=== PATIENT | female | born 1940 | race Caucasian/White ===

== ENCOUNTER 2017-10-31 10:12 | Outpatient (CLI) | payer MEDICARE, OTHER | END 2017-10-31 10:13 | disposition home or self-care (01) | LOC: BICMAMMO 10:12 | PROVIDERS: ATTEND Family Medicine | DX: Z12.31 Encounter for screening mammogram for malignant neoplasm of breast (principal) | CPT/HCPCS: 77063; 77067 ==

== ENCOUNTER 2018-06-08 13:56 | Outpatient (CLI) | payer MEDICARE ==
[~2018-06-08 13:56] MED LIST: Gadobenate Dimeglumine 529 MG/1 ML (20ML VIAL) ONE
--- NOTE | 2018-06-08 15:40 | MRI ---
MRI OF THE BRAIN WITHOUT AND WITH CONTRAST: COMPARISON: None. HISTORY: Unsteady gait and polyneuropathy. Left eye tremor. TECHNIQUE: Multiplanar, multisequence MR images were obtained of the brain without and with IV contrast. FINDINGS: There are a few scattered foci of high FLAIR signal in the subcortical and periventricular white elisa er, likely secondary to small-vessel ischemic disease. No restricted diffusion is seen to suggest an acute infarction. No abnormal enhancement is seen. There is no evidence of hydrocephalus, intracranial hemorrhage, or extraaxial fluid collection. The expected flow voids are present. The corpus callosum, pituitary, and craniocervical junction are unr emarkable. The calvarium and overlying soft tissues are unremarkable. The visualized paranasal sinuses and mast oid air cells are well aerated. IMPRESSION: Small-vessel ischemic disease without acute intracranial abnormality. POS: [facility]
== END 2018-06-08 13:57 | disposition home or self-care (01) ==
LOC: SCSMRI 13:56
PROVIDERS: ATTEND Psychiatry & Neurology Neurology
DX: G63 Polyneuropathy in diseases classified elsewhere (principal); I67.82 Cerebral ischemia
CPT/HCPCS: 70553; 82565; A9579

== ENCOUNTER 2019-01-10 22:33 | Emergency (ER) | payer MEDICARE | END 2019-01-10 23:33 | disposition home or self-care (01) | LOC: ERS 22:33 | DX: T63.2X1A Toxic effect of venom of scorpion, accidental (unintentional), initial encounter (principal); Z87.01 Personal history of pneumonia (recurrent) | CPT/HCPCS: 99283 ==

== ENCOUNTER 2020-03-19 22:41 | Emergency (ER) | payer MEDICARE | END 2020-03-20 00:05 | disposition left against medical advice (07) | LOC: ERS 22:41 | DX: Z53.21 Procedure and treatment not carried out due to patient leaving prior to being seen by health care provider (principal) ==

== ENCOUNTER 2020-09-16 06:38 | Outpatient (CLI) | payer MEDICARE ==
[2020-09-16 15:43] LABS: Bilirubin Neg (Negative); Blood, Urine Negative (Negative); Clarity Clear (Clear); Glucose, Urine (Dipstick) Normal (Negative); Ketone, Urine Negative (Negative); Leukocyte Negative (Negative); Nitrite Negative (Negative); Protein, Urine (Dipstick) Negative (Neg-Trace); Urobilinogen Normal mg/dL (Less than 2)
[2020-09-16 15:50] LABS: Anion Gap 14 mmol/L (10-20); BUN (Urea Nitrogen) 23 mg/dL (9.8-20.1); Calc. Creatinine Clearance 0 mL/min (70-130); Calcium 10.1 mg/dL (7.8-10.44); Carbon Dioxide 27 mmol/L (23-31); Chloride 105 mmol/L (98-107); Glucose 94 mg/dL (83-110); Potassium 4.6 mmol/L (3.5-5.1); Sodium 141 mmol/L (136-145)
[2020-09-16 15:55] LABS: #Basophils 0.1 10x3/uL (0.0-0.2); #Eosinphils 0.1 10x3/uL (0.0-0.5); #Monocytes 0.6 10x3/uL (0.0-1.1); #Neutrophils 4.7 10x3/uL (1.5-8.4); %Basophils 0.8 % (0.0-2.0); %Eosinophils 1.1 % (0.0-6.0); %Monocytes 7.7 % (0.0-10.0); Hemoglobin 13.6 g/dL (12.0-16.0); Mean Corpuscular HGB CONC 31.9 G/DL (32.0-36.0); Mean Corpuscular Hemoglobin 31.1 PG (27.0-33.0); Mean Corpuscular Volume 97.5 fl (80.0-100.0); Mean Platelet Volume 10.7 fl (7.4-10.4); Platelet Count 230 10x3/uL (130-400); RBC Distribution Width 13.4 % (11.5-14.5); Red Blood Cell (RBC) Count 4.37 10x6/uL (3.90-5.20); White Blood Cell (WBC) Count 7.4 10x3/uL (4.5-11.0)
[2020-09-16 16:02] LABS: RBC/HPF None Seen HPF (0-3); Squamous Epithelial 0-3 HPF (0-3); WBC/HPF None Seen HPF (0-3)
[2020-09-16 16:03] LABS: Bacteria/HPF None Seen HPF (None Seen)
[2020-09-17 07:48] LABS: SARS-CoV-2 MS2 Positive; SARS-CoV-2 N Gene Negative; SARS-CoV-2 S Gene Negative; SARS-CoV-2 by NAA Not Detected (NotDetected); SARS-CoV-2 orf1ab Negative
== END 2020-09-16 06:39 | disposition home or self-care (01) ==
LOC: LABBT 06:38
PROVIDERS: ATTEND Orthopaedic Surgery Hand Surgery
DX: Z01.818 Encounter for other preprocedural examination (principal); Z01.812 Encounter for preprocedural laboratory examination; M18.12 Unilateral primary osteoarthritis of first carpometacarpal joint, left hand; G56.01 Carpal tunnel syndrome, right upper limb; Z20.828 Contact with and (suspected) exposure to other viral communicable diseases
CPT/HCPCS: 80048; 81001; 85025; 93005; U0003; 87635; 93010

== ENCOUNTER 2020-09-19 05:59 | Day surgery (SDC) | payer MEDICARE ==
[2020-09-18 12:13] VITALS: BMI 21.2
[2020-09-19] MEDS ORDERED: Midazolam HCl 2 mg/2 ml Vial ONE (06:20)
[2020-09-19] MEDS ORDERED: Fentanyl 100 MCG/2 ML VIAL ONE ×3 (06:20→10:36)
[2020-09-19] MEDS ORDERED: Bupivacaine PF 0.5% 30 ML VIAL ONE (06:29)
[2020-09-19] MEDS ORDERED: Betamet Acet/Betamet Na Ph 30 MG/5 ML VIAL ONE (06:29)
[2020-09-19] MEDS ORDERED: Bacitracin Zinc Ointment 30 gm TUBE ONE (06:30)
[2020-09-19] MEDS ORDERED: Sodium Chloride 0.9% 10 ML ONE (06:30)
--- NOTE | 2020-09-19 10:05 | RAD ---
XR Hand Lt 2 View History: Arthroplasty Comparison: None. Findings: 2 images from the operating room were performed. Percutaneous pins are seen through the mariano mb. Impression: Fluoroscopy for procedure purposes.
[2020-09-19] MEDS ORDERED: Dexamethasone 20 MG/5 ML VIAL ONE (10:20)
[2020-09-19] MEDS ORDERED: PROPOFOL 200 MG/20 ML VIAL ONE (10:20)
[2020-09-19] MEDS ORDERED: Bupivacaine HCl 0.5%/Epinephrine 1:200,000/PF 30 ml Vial ONE (10:20)
[2020-09-19] MEDS ORDERED: Lidocaine 1% PF 5 ML VIAL ONE (10:20)
[2020-09-19] MEDS ORDERED: Ketorolac Tromethamine 30 MG/ML VIAL ONE (10:20)
[2020-09-19] MEDS ORDERED: PHENYLEPHRINE-NS 100 MCG/ML 10 ML SYRINGE ONE (10:20)
[2020-09-19] MEDS ORDERED: Ondansetron PF 4 MG/2 ML Vial ONE (10:20)
--- NOTE | 2020-09-21 15:32 | OP ---
DATE OF PROCEDURE: 09/19/2020 PREOPERATIVE DIAGNOSES: 1. Left carpal tunnel syndrome. 2. Left thumb carpometacarpal osteoarthritis. FINDINGS: 1. Greater than 80% loss of chondral surface at the left thumb CMC from both sides with large osteophytes on the base of the thumb. 2. Tight transcarpal ligament over 1 cm area, causing early stippling without hourglass formation of the median nerve within the carpal canal. PROCEDURES PERFORMED: 1. Left carpal tunnel release. 2. Left thumb ligament replacement and tendon positioning with flexor carpi radialis tendon transfer and complete trapeziectomy. SPECIMEN: Trapezium, but not sent to Pathology. ESTIMATED BLOOD LOSS: 10 mL. TOURNIQUET TIME: 91 minutes. ANESTHESIA: Combination of general LMA technique and one shot 24-hour block, axillary level. DESCRIPTION OF PROCEDURE: After successful general endotracheal anesthesia, the limb was prepped and draped. Patient then had a bolstered 2.0 cm mini-carpal tunnel incision outlined beginning at 5 mm distal palmar flexion crease. Then, a J-shaped incision centered over the CMC joint thumb. After exsanguinating the limb and full prep and drape with appropriate time-out, the patient then had the carpal tunnel incision entered into skin and subcutaneous tissue. We identified the palmaris longus insertion on the fascia. We then entered this slightly in the palmaris insertion. We carried this through the layers to visualize underlying structures and used a combination of [place] blade, tenotomy scissors to release it from here distally. All nerve branches were intact. Then, from there proximally, we did release using same instruments and techniques. The patient then had the carpal tunnel release completed. We then dripped 2 mL of Celestone over the median nerve and then closed the incision primarily with interrupted 4-0 nylon mattress pattern. We then entered the hockey-stick incision. The patient had the dissection carried down through subcutaneous level where we entered the interval between the median nerve and the radial nerve branch, which we preserved. We then released the interossei and the thenar muscles off the bone where as fascia located simultaneously, lifted up the joint capsule. Joint capsule was secured and held for later closure with a tagged 2-0 Vicryl. We then slowly dissected the radial aspect with combination of [place] blade, tenotomy scissors, and then the ulnar aspect of the trapezium was dissected until we identified the flexor carpi radialis tendon. We protected the tendon while we used sharp and blunt dissection to remove all soft tissue off the trapezium. Trapezium identified with a K-wire inside using C-arm and then the position was excellent, so we then put a corkscrew attachment from [employer] in the trapezium. This allowed us to elevate it more succinctly, and we were able to do so protecting the flexor carpi radialis tendon completely. We then identified lateral edge 1.5 cm from the thumb base, removed all osteophytes, rotated the thumb until the nail was parallel to the palm, and then drilled a K-wire obliquely in the junction of the chondral surface and the metaphyseal bone. We drilled this first with a 2.7 drill and 3.0 drill and progressively increased it with multiple gouges. Once we reached sufficient size to match the patient's flexor carpi radialis in this female, we then made 2 incisions technique to harvest flexor carpi radialis tendon, brought it into the wrist. We removed all excess muscle, and even had to thin the tendon by approximately 25%. We then passed easily through the tunnel, trapezium. We then secured it in appropriate orientation in frontal sagittal plane to the index finger to metacarpal base. We filled the defect by placing a 3-0 Prolene in the capsule and then making anchovy weave. Before we made anchovy weave over a Arash needle, we secured the base of the metacarpal of the thumb to the base metacarpal of the index finger by tied under tension the flexor carpi radialis tendon with multiple, times 6, sutures. We then tied upon itself deep in the area and before completing the anchovy weave. Tourniquet was deflated, obtained hemostasis. We then released the tourniquet and obtained hemostasis. We closed the capsule over the anchovy weave of the remnant of the flexor carpi radialis tendon and had confirmed excellent height of the metacarpal relative to the base of the 2nd metacarpal. We then cut the K-wires that we used 1st and 2nd metacarpal and we were able to bend them outside the skin by 3-4 mm with 3 mm long, 90 degrees angle. We then visualized the extensor pollicis brevis and the superficial radial nerve branch were intact, we closed the area with a running 4-0 Monocryl until we were had enough tension that we could apply Steri-Strips. The carpal tunnel had been closed with 4-0 nylon with interrupted pattern. The patient then had a bulky dressing applied with a thumb spica splint and left the operating room without evidence of anesthetic or operative complication. Job ID: [id number]
== END 2020-09-19 12:40 | disposition home or self-care (01) ==
LOC: SDC 05:59
PROVIDERS: ATTEND Orthopaedic Surgery Hand Surgery
PROC: 0LX60ZZ Transfer Left Lower Arm and Wrist Tendon, Open Approach (ICD-10-PCS; principal; 2020-09-19)
PROC: 0RQT0ZZ Repair Left Carpometacarpal Joint, Open Approach (ICD-10-PCS; 2020-09-19)
PROC: 01N50ZZ Release Median Nerve, Open Approach (ICD-10-PCS; 2020-09-19)
DX: M18.12 Unilateral primary osteoarthritis of first carpometacarpal joint, left hand (principal); G56.02 Carpal tunnel syndrome, left upper limb; G56.22 Lesion of ulnar nerve, left upper limb; I10 Essential (primary) hypertension; E78.00 Pure hypercholesterolemia, unspecified; Z79.82 Long term (current) use of aspirin; Z79.899 Other long term (current) drug therapy; Z88.5 Allergy status to narcotic agent; Z20.828 Contact with and (suspected) exposure to other viral communicable diseases
CPT/HCPCS: 25310; 25447; 64721; 73120; 76000; 80048; 81001; 85025; 93005; C1713; U0003; 87635; 93010; J0690; J0702; J1100; J1885; J2250; J2405; J2704; J3010; J3490; S0020

== ENCOUNTER 2022-05-29 03:42 | Emergency (ER) | payer MEDICARE | END 2022-05-29 04:33 | disposition home or self-care (01) | LOC: ERS 03:42 | DX: H72.91 Unspecified perforation of tympanic membrane, right ear (principal) | CPT/HCPCS: 99282 ==

== ENCOUNTER 2022-06-04 19:51 | Emergency (ER) | payer MEDICARE ==
[2022-06-04] MEDS ORDERED: Orphenadrine Citrate 60 MG/2 ML VIAL ONE (20:50)
== END 2022-06-04 21:40 | disposition home or self-care (01) ==
LOC: ERS 19:51
DX: S46.911A Strain of unspecified muscle, fascia and tendon at shoulder and upper arm level, right arm, initial encounter (principal)
CPT/HCPCS: 96372; J2360

== ENCOUNTER 2023-12-05 14:04 | Outpatient (CLI) | payer MEDICARE | END 2023-12-05 14:05 | disposition home or self-care (01) | LOC: BICMAMMO 14:04 | PROVIDERS: ATTEND Family Medicine | DX: M85.89 Other specified disorders of bone density and structure, multiple sites (principal); M81.0 Age-related osteoporosis without current pathological fracture | CPT/HCPCS: 77080 ==

== ENCOUNTER 2025-04-17 21:43 | Inpatient (IN) | payer MEDICARE ==
[2025-04-17] MEDS ORDERED: HYDROcodone/Acetaminophen 5/325 mg Tablet ONE ×2 (22:09→22:19)
[2025-04-18] MEDS ORDERED: hydrALAZINE 20 MG/ML VIAL ONE (00:01)
[2025-04-18 00:26] LABS: #Basophils 0.06 10x3/uL (0.0-0.2); #Eosinophils 0.07 10x3/uL (0.0-0.7); #Monocytes 0.45 10x3/uL (0.11-0.59); #Neutrophils 6.73 10x3/uL (1.40-6.50); %Basophils 0.7 % (0.0-1.0); %Eosinophils 0.8 % (0.0-10.0); %Lymphocytes 16.1 % (21.0-51.0); %Monocytes 5.1 % (0.0-10.0); %Neutrophils 77.0 % (42.0-75.0); Hematocrit 33.9 % (36.0-47.0); Hemoglobin 10.6 g/dL (12.0-16.0); Mean Corpuscular Hemoglobin 31.0 pg (27.0-31.0); Mean Corpuscular Volume 99.1 fL (78.0-98.0); Platelet Count 210 10x3/uL (130-400); Red Blood Cell (RBC) Count 3.42 mill/uL (4.20-5.40); White Blood Cell (WBC) Count 8.75 10x3/uL (4.8-10.8)
[2025-04-18 00:36] LABS: INR-International Normal Ratio 1.1; PTT 28.5 sec (22.9-36.1); Prothrombin Time 14.0 sec (12.0-14.7)
[2025-04-18 00:51] LABS: ALT (SGPT) 19 U/L (Less than 34); AST (SGOT) 28 U/L (11-34); Albumin 4.0 g/dL (3.1-4.5); Alkaline Phosphatase 184 U/L (40-110); Anion Gap 14 mmol/L (10-20); BUN (Urea Nitrogen) 23 mg/dL (9.8-20.1); Bilirubin, Total 0.2 mg/dL (0.3-1.2); Calc. Creatinine Clearance 0 mL/min (70-130); Calcium 10.1 mg/dL (7.8-10.44); Carbon Dioxide 25 mmol/L (23-31); Chloride 105 mmol/L (98-107); Globulin 3.2 g/dL (2.4-3.5); Glucose 114 mg/dL (83-110); Potassium 4.4 mmol/L (3.5-5.1); Sodium 140 mmol/L (136-145)
[2025-04-18 01:15] VITALS: BMI 20.3
[2025-04-18] MEDS ORDERED: Acetaminophen 325 MG TAB PO PRN (01:45)
[2025-04-18] MEDS: Ondansetron PF 4 MG/2 ML Vial IVP PRN (03:04)
[2025-04-18 08:25] LABS: #Basophils 0.05 10x3/uL (0.0-0.2); #Eosinophils Less than 0.03 10x3/uL (0.0-0.7); #Monocytes 0.74 10x3/uL (0.11-0.59); #Neutrophils 8.31 10x3/uL (1.40-6.50); %Basophils 0.5 % (0.0-1.0); %Eosinophils 0.0 % (0.0-10.0); %Lymphocytes 9.7 % (21.0-51.0); %Monocytes 7.3 % (0.0-10.0); %Neutrophils 81.8 % (42.0-75.0); Hematocrit 32.3 % (36.0-47.0); Hemoglobin 10.3 g/dL (12.0-16.0); Mean Corpuscular Hemoglobin 31.1 pg (27.0-31.0); Mean Corpuscular Volume 97.6 fL (78.0-98.0); Platelet Count 206 10x3/uL (130-400); Red Blood Cell (RBC) Count 3.31 mill/uL (4.20-5.40); White Blood Cell (WBC) Count 10.15 10x3/uL (4.8-10.8)
[2025-04-18 08:46] LABS: Anion Gap 12 mmol/L (10-20); BUN (Urea Nitrogen) 19 mg/dL (9.8-20.1); Calc. Creatinine Clearance 42 mL/min (70-130); Calcium 9.6 mg/dL (7.8-10.44); Carbon Dioxide 27 mmol/L (23-31); Chloride 104 mmol/L (98-107); Glucose 142 mg/dL (83-110); Magnesium 1.9 mg/dL (1.6-2.6); Potassium 4.6 mmol/L (3.5-5.1); Sodium 138 mmol/L (136-145)
[2025-04-18] MEDS ORDERED: CHOLECALCIFEROL 1250 MCG PO SCH (09:00)
[2025-04-18] MEDS: DULoxetine 30 MG CAP PO SCH (09:18)
[2025-04-18] MEDS: Budesonide DR 3 MG CAP PO SCH (09:19)
[2025-04-18] MEDS: Memantine 5 MG TAB PO SCH (09:19)
[2025-04-18] MEDS: Calcium Carbonate 600 MG + Vit D TAB PO SCH (09:19)
[2025-04-18] MEDS: Multivitamin w/Zinc Stress 1 TAB PO SCH (09:19)
[2025-04-18] MEDS: CO Q-10 CAPSULE 100 MG PO SCH (09:19)
[2025-04-18] MEDS: Floranex 1 GM Packet PO SCH (10:29)
[2025-04-18] MEDS ORDERED: Ropivacaine 0.5% HCl/PF (150 MG/30 ML VIAL) ONE (11:13)
[2025-04-18] MEDS ORDERED: fentaNYL PF 100 MCG/2 ML SYRINGE ONE (11:41)
[2025-04-18] MEDS ORDERED: PROPOFOL 20 ML ONE (11:42)
[2025-04-18] MEDS ORDERED: CEFAZOLIN 1 GM VIAL ONE (12:48)
[2025-04-18] MEDS ORDERED: PHENYLEPHRINE-NS 100 MCG/ML 10 ML SYRINGE ONE (13:11)
[2025-04-18] MEDS ORDERED: Ondansetron PF 4 MG/2 ML Vial ONE (13:12)
[2025-04-18] MEDS ORDERED: SUGAMMADEX SODIUM 200 MG/2 ML VIAL ONE (14:07)
[2025-04-18] MEDS: METHYLFOLATE PO SCH (17:06)
[2025-04-18] MEDS: CHONDROITIN PO SCH (17:06)
[2025-04-18] MEDS: CHOLECALCIFEROL PO SCH (17:06)
[2025-04-18] MEDS: GLUCOSAMINE PO SCH (17:06)
[2025-04-18] MEDS: VITAMIN A PO SCH (17:06)
[2025-04-18] MEDS: PREVAGEN PO SCH (17:06)
[2025-04-18] MEDS: Ketorolac Tromethamine 30 MG (1 mL) VIAL IVP PRN (22:16)
[2025-04-19 05:47] LABS: #Basophils Less than 0.03 10x3/uL (0.0-0.2); #Eosinophils Less than 0.03 10x3/uL (0.0-0.7); #Monocytes 1.45 10x3/uL (0.11-0.59); #Neutrophils 8.47 10x3/uL (1.40-6.50); %Basophils 0.1 % (0.0-1.0); %Eosinophils 0.0 % (0.0-10.0); %Lymphocytes 13.7 % (21.0-51.0); %Monocytes 12.6 % (0.0-10.0); %Neutrophils 73.3 % (42.0-75.0); Hematocrit 27.2 % (36.0-47.0); Hemoglobin 8.8 g/dL (12.0-16.0); Mean Corpuscular Hemoglobin 31.3 pg (27.0-31.0); Mean Corpuscular Volume 96.8 fL (78.0-98.0); Platelet Count 200 10x3/uL (130-400); Red Blood Cell (RBC) Count 2.81 mill/uL (4.20-5.40); White Blood Cell (WBC) Count 11.55 10x3/uL (4.8-10.8)
[2025-04-19 05:57] LABS: Anion Gap 12 mmol/L (10-20); BUN (Urea Nitrogen) 18 mg/dL (9.8-20.1); Calc. Creatinine Clearance 40 mL/min (70-130); Calcium 9.1 mg/dL (7.8-10.44); Carbon Dioxide 20 mmol/L (23-31); Chloride 106 mmol/L (98-107); Glucose 118 mg/dL (83-110); Potassium 5.0 mmol/L (3.5-5.1); Sodium 133 mmol/L (136-145)
[2025-04-19] MEDS: Methocarbamol 500 MG TAB PO PRN (14:15)
[2025-04-20] MEDS: Acetaminophen 325 MG TAB PO PRN (06:02)
[2025-04-20 06:20] LABS: #Basophils Less than 0.03 10x3/uL (0.0-0.2); #Eosinophils Less than 0.03 10x3/uL (0.0-0.7); #Monocytes 0.89 10x3/uL (0.11-0.59); #Neutrophils 9.28 10x3/uL (1.40-6.50); %Basophils 0.2 % (0.0-1.0); %Eosinophils 0.1 % (0.0-10.0); %Lymphocytes 9.1 % (21.0-51.0); %Monocytes 7.9 % (0.0-10.0); %Neutrophils 82.3 % (42.0-75.0); Hematocrit 23.4 % (36.0-47.0); Hemoglobin 7.6 g/dL (12.0-16.0); Mean Corpuscular Hemoglobin 31.8 pg (27.0-31.0); Mean Corpuscular Volume 97.9 fL (78.0-98.0); Platelet Count 180 10x3/uL (130-400); Red Blood Cell (RBC) Count 2.39 mill/uL (4.20-5.40); White Blood Cell (WBC) Count 11.28 10x3/uL (4.8-10.8)
[2025-04-20 07:05] LABS: Anion Gap 12 mmol/L (10-20); BUN (Urea Nitrogen) 34 mg/dL (9.8-20.1); Calc. Creatinine Clearance 31 mL/min (70-130); Calcium 8.8 mg/dL (7.8-10.44); Carbon Dioxide 20 mmol/L (23-31); Chloride 105 mmol/L (98-107); Glucose 130 mg/dL (83-110); Potassium 4.6 mmol/L (3.5-5.1); Sodium 132 mmol/L (136-145)
[2025-04-20 07:18] LABS: ALT (SGPT) Less than 7 U/L (Less than 34); AST (SGOT) 25 U/L (11-34); Albumin 2.8 g/dL (3.1-4.5); Alkaline Phosphatase 149 U/L (40-110); Anion Gap 11 mmol/L (10-20); BUN (Urea Nitrogen) 33 mg/dL (9.8-20.1); Bilirubin, Total 0.3 mg/dL (0.3-1.2); Calc. Creatinine Clearance 30 mL/min (70-130); Calcium 9.0 mg/dL (7.8-10.44); Carbon Dioxide 22 mmol/L (23-31); Chloride 105 mmol/L (98-107); Globulin 2.8 g/dL (2.4-3.5); Glucose 128 mg/dL (83-110); Magnesium 2.3 mg/dL (1.6-2.6); Potassium 4.6 mmol/L (3.5-5.1); Sodium 133 mmol/L (136-145)
[2025-04-20] MEDS ORDERED: Vancomycin 1 GM in Sodium Chloride 0.9% 250 ML 250 ML IVPB SCH (09:00)
[2025-04-20] MEDS: Vancomycin 1 GM in Premix 1 BAG IVPB SCH (09:02)
[2025-04-20] MEDS: OLANZapine 10 MG VIAL IM SCH (09:04)
[2025-04-20 13:38] LABS: CAUTI Indications for Culture Alt mental st,lethar; Glucose, Urine (Dipstick) Normal (Negative); Leukocyte 500 Leu/uL (Negative); Protein, Urine (Dipstick) Negative (Neg-Trace); RBC/HPF 0-3 HPF (0-3); Specific Gravity, Urine 1.020 (1.002-1.036); WBC/HPF Greater than 50 HPF (0-3)
[2025-04-20 13:55] LABS: Bacteria/HPF 1+ HPF (None Seen)
[2025-04-20 13:57] LABS: Urine Culture Reflex Yes Yes
[2025-04-20] MEDS ORDERED: Vancomycin Dose by Levels Sliding Scale (Wt <71) FS SCH (14:00)
[2025-04-20] MEDS ORDERED: Vancomycin HCl 500 MG in NaCl 0.9% 100 ML IV SCH (21:00)
[2025-04-21 05:12] LABS: #Basophils 0.03 10x3/uL (0.0-0.2); #Eosinophils 0.07 10x3/uL (0.0-0.7); #Monocytes 0.97 10x3/uL (0.11-0.59); #Neutrophils 7.68 10x3/uL (1.40-6.50); %Basophils 0.3 % (0.0-1.0); %Eosinophils 0.7 % (0.0-10.0); %Lymphocytes 14.7 % (21.0-51.0); %Monocytes 9.4 % (0.0-10.0); %Neutrophils 74.6 % (42.0-75.0); Hematocrit 21.5 % (36.0-47.0); Hemoglobin 6.9 g/dL (12.0-16.0); Mean Corpuscular Hemoglobin 30.5 pg (27.0-31.0); Mean Corpuscular Volume 95.1 fL (78.0-98.0); Platelet Count 179 10x3/uL (130-400); Red Blood Cell (RBC) Count 2.26 mill/uL (4.20-5.40); White Blood Cell (WBC) Count 10.29 10x3/uL (4.8-10.8)
[2025-04-21 05:25] LABS: Anion Gap 10 mmol/L (10-20); BUN (Urea Nitrogen) 29 mg/dL (9.8-20.1); Calc. Creatinine Clearance 36 mL/min (70-130); Calcium 8.7 mg/dL (7.8-10.44); Carbon Dioxide 19 mmol/L (23-31); Chloride 110 mmol/L (98-107); Glucose 117 mg/dL (83-110); Potassium 4.4 mmol/L (3.5-5.1); Sodium 135 mmol/L (136-145)
[2025-04-21 10:32] LABS: Vancomycin, Trough 6.0 ug/mL
[2025-04-21] MEDS: Lidocaine 4% Topical Sol 50 ML BOT TOP SCH (13:40)
[2025-04-21] MEDS: Furosemide 20 MG (2 mL) VIAL SLOW IVP SCH (13:41)
[2025-04-21] MEDS: Vancomycin 1 GM in Premix 1 BAG IVPB SCH (13:41)
[2025-04-21] MEDS ORDERED: Vancomycin 1 GM in Premix 1 BAG IVPB SCH (23:00)
[2025-04-22 00:18] LABS: Hematocrit 27.2 % (36.0-47.0); Hemoglobin 9.1 g/dL (12.0-16.0)
[2025-04-22 06:14] LABS: #Basophils 0.03 10x3/uL (0.0-0.2); #Eosinophils 0.31 10x3/uL (0.0-0.7); #Monocytes 0.75 10x3/uL (0.11-0.59); #Neutrophils 5.01 10x3/uL (1.40-6.50); %Basophils 0.4 % (0.0-1.0); %Eosinophils 4.1 % (0.0-10.0); %Lymphocytes 18.9 % (21.0-51.0); %Monocytes 9.9 % (0.0-10.0); %Neutrophils 66.0 % (42.0-75.0); Hematocrit 27.8 % (36.0-47.0); Hemoglobin 9.2 g/dL (12.0-16.0); Mean Corpuscular Hemoglobin 29.1 pg (27.0-31.0); Mean Corpuscular Volume 88.0 fL (78.0-98.0); Platelet Count 183 10x3/uL (130-400); Red Blood Cell (RBC) Count 3.16 mill/uL (4.20-5.40); White Blood Cell (WBC) Count 7.58 10x3/uL (4.8-10.8)
[2025-04-22 06:31] LABS: Anion Gap 12 mmol/L (10-20); BUN (Urea Nitrogen) 19 mg/dL (9.8-20.1); Calc. Creatinine Clearance 46 mL/min (70-130); Calcium 8.7 mg/dL (7.8-10.44); Carbon Dioxide 21 mmol/L (23-31); Chloride 109 mmol/L (98-107); Glucose 99 mg/dL (83-110); Potassium 4.0 mmol/L (3.5-5.1); Sodium 138 mmol/L (136-145)
[2025-04-23] MEDS: hydrALAZINE 20 MG/ML VIAL SLOW IVP PRN (20:17)
[2025-04-23] MEDS: Melatonin 3 MG TAB PO PRN (22:49)
[2025-04-24 05:24] LABS: #Basophils 0.06 10x3/uL (0.0-0.2); #Eosinophils 0.39 10x3/uL (0.0-0.7); #Monocytes 1.24 10x3/uL (0.11-0.59); #Neutrophils 4.33 10x3/uL (1.40-6.50); %Basophils 0.7 % (0.0-1.0); %Eosinophils 4.7 % (0.0-10.0); %Lymphocytes 26.0 % (21.0-51.0); %Monocytes 14.8 % (0.0-10.0); %Neutrophils 51.8 % (42.0-75.0); Hematocrit 30.9 % (36.0-47.0); Hemoglobin 10.1 g/dL (12.0-16.0); Mean Corpuscular Hemoglobin 29.1 pg (27.0-31.0); Mean Corpuscular Volume 89.0 fL (78.0-98.0); Platelet Count 255 10x3/uL (130-400); Red Blood Cell (RBC) Count 3.47 mill/uL (4.20-5.40); White Blood Cell (WBC) Count 8.37 10x3/uL (4.8-10.8)
[2025-04-24 05:46] LABS: Anion Gap 12 mmol/L (10-20); BUN (Urea Nitrogen) 12 mg/dL (9.8-20.1); Calc. Creatinine Clearance 48 mL/min (70-130); Calcium 9.6 mg/dL (7.8-10.44); Carbon Dioxide 23 mmol/L (23-31); Chloride 107 mmol/L (98-107); Glucose 106 mg/dL (83-110); Potassium 3.5 mmol/L (3.5-5.1); Sodium 138 mmol/L (136-145)
[2025-04-24] MEDS ORDERED: Aspirin/APAP/Caffeine Tab (Excedrin Migraine) PO PRN (10:03)
[2025-04-24] MEDS: Ibuprofen 600 MG TAB PO PRN (10:26)
[2025-04-24 16:10] VITALS: BMI 20.3
[2025-04-24 16:15] LABS: Glucose, Urine (Dipstick) Normal (Negative); Leukocyte Negative Leu/uL (Negative); Protein, Urine (Dipstick) 20 mg/dL (Neg-Trace); Specific Gravity, Urine 1.024 (1.002-1.036)
[2025-04-25] MEDS: Losartan 25 MG TAB PO SCH (09:57)
[2025-04-27 15:49] LABS: CAUTI Indications for Culture Dysuria,urgency,freq; Glucose, Urine (Dipstick) Normal (Negative); Leukocyte Negative Leu/uL (Negative); Protein, Urine (Dipstick) 20 mg/dL (Neg-Trace); RBC/HPF 0-3 HPF (0-3); Specific Gravity, Urine 1.024 (1.002-1.036); WBC/HPF 0-3 HPF (0-3)
[2025-04-27 16:05] LABS: Bacteria/HPF Rare-Few HPF (None Seen)
[2025-04-27 16:06] LABS: Urine Culture Reflex No No
[2025-05-01 07:49] LABS: Anion Gap 10 mmol/L (10-20); BUN (Urea Nitrogen) 18 mg/dL (9.8-20.1); Calc. Creatinine Clearance 45 mL/min (70-130); Calcium 9.4 mg/dL (7.8-10.44); Carbon Dioxide 26 mmol/L (23-31); Chloride 107 mmol/L (98-107); Glucose 92 mg/dL (83-110); Potassium 4.3 mmol/L (3.5-5.1); Sodium 139 mmol/L (136-145)
[2025-05-01] MEDS: Losartan 25 MG TAB PO SCH (10:10)
[2025-05-02] MEDS: Losartan 25 MG TAB PO SCH (09:09)
[2025-05-04 08:42] VITALS: BP 163/69; TEMP 98
== END 2025-05-04 10:25 | disposition home or self-care (01) | DRG 480 ==
LOC: ERS 21:43 → SURG A 23:50
PROVIDERS: ADMIT Orthopaedic Surgery; ATTEND Orthopaedic Surgery
PROC: 0QHB06Z Insertion of Intramedullary Internal Fixation Device into Right Lower Femur, Open Approach (ICD-10-PCS; principal; 2025-04-18)
PROC: 3E03329 Introduction of Other Anti-infective into Peripheral Vein, Percutaneous Approach (ICD-10-PCS; 2025-04-18)
PROC: 30233N1 Transfusion of Nonautologous Red Blood Cells into Peripheral Vein, Percutaneous Approach (ICD-10-PCS; 2025-04-21)
DX: M97.01XA Periprosthetic fracture around internal prosthetic right hip joint, initial encounter (principal); A41.9 Sepsis, unspecified organism; G93.41 Metabolic encephalopathy; J69.0 Pneumonitis due to inhalation of food and vomit; G61.0 Guillain-Barre syndrome; N39.0 Urinary tract infection, site not specified; D62 Acute posthemorrhagic anemia; I10 Essential (primary) hypertension; I34.0 Nonrheumatic mitral (valve) insufficiency; M79.7 Fibromyalgia; W18.30XA Fall on same level, unspecified, initial encounter; F32.A Depression, unspecified; F03.90 Unspecified dementia, unspecified severity, without behavioral disturbance, psychotic disturbance, mood disturbance, and anxiety; Z88.5 Allergy status to narcotic agent; Z90.710 Acquired absence of both cervix and uterus; Z98.890 Other specified postprocedural states; Z79.82 Long term (current) use of aspirin; Z79.899 Other long term (current) drug therapy
CPT/HCPCS: 36415; 36416; 36430; 70551; 71045; 80048; 80053; 80202; 81001; 81003; 83605; 83735; 83880; 84100; 84145; 84443; 85025; 85610; 85730; 86850; 86900; 86901; 87040; 87086; 93005; 96374; C1713; J0360; J0690; J0692; J1100; J1885; J1940; J2270; J2405; J2704; J2795; J3010; J3373; J7030; J7120; P9016

== ENCOUNTER 2025-09-24 13:34 | Outpatient (CLI) | payer MEDICARE | END 2025-09-24 13:35 | disposition home or self-care (01) | LOC: BICCT 13:34 | PROVIDERS: ATTEND Physician Assistant Surgical | DX: S72.401D Unspecified fracture of lower end of right femur, subsequent encounter for closed fracture with routine healing (principal); M25.461 Effusion, right knee; Z96.651 Presence of right artificial knee joint; Z98.890 Other specified postprocedural states ==